=== PATIENT | male | born 1960 ===

== ENCOUNTER 2024-03-23 21:33 | Emergency (ER) | payer MEDICAID ==
[~2024-03-23] VITALS: Ht 165.1 cm; Wt 74.0 kg
[2024-03-23 21:52] VITALS: BP 131/80; PULSE 70; RESP 18; TEMP 97.4
[2024-03-23 22:15] LABS: BASOPHILS % (AUTO) 0.9 % (0.0-2.0); EOSINOPHILS % (AUTO) 2.8 % (1.0-6.0); HEMATOCRIT 40.9 % (41-53); HEMOGLOBIN 13.7 g/dL (13.5-17.5); LYMPHOCYTES # (AUTO) 1.2 K/uL (1.0-4.8); LYMPHOCYTES % (AUTO) 25.4 % (22.0-44.0); MEAN CORPUSCULAR HEMOGLOBIN 32.1 pg (26.0-34.0); MEAN CORPUSCULAR HGB CONC 33.6 G/dL (31.0-37.0); MEAN CORPUSCULAR VOLUME 96 fL (80-100); MONOCYTES # (AUTO) 0.4 K/uL (0.1-1.0); MONOCYTES % (AUTO) 9.3 % (2.0-9.0); NEUTROPHILS # (AUTO) 2.9 K/uL (1.8-7.7); NEUTROPHILS % (AUTO) 61.6 % (40.0-70.0); PLATELET COUNT (AUTO) 190 K/uL (150-450); RED BLOOD CELL COUNT(AUTO) 4.29 MIL/uL (4.50-5.90); RED CELL DISTRIBUTION WIDTH 14.2 % (11.5-14.5); WHITE BLOOD COUNT (AUTO) 4.7 K/uL (4.5-11.0)
[2024-03-23 22:35] LABS: CALCIUM, TOTAL 8.8 mg/dL (8.8-10.5); CREATININE 1.22 mg/dL (0.60-1.30); POTASSIUM 3.6 mmol/L (3.5-5.1)
[2024-03-23 22:43] LABS: TROPONIN I-HIGH SENSITIVITY 20 ng/L (<76)
[2024-03-23] MEDS ORDERED: ONDA-104 PO (23:01)
[2024-03-23] MEDS ORDERED: DIPH-1130 PO (23:01)
[2024-03-23] MEDS: DIPHENOXYLATE/ATROP 2.5-0.025 MG TABLET PO ONE (23:22)
[2024-03-23] MEDS: ONDANSETRON HCL 4 MG TABLET PO ONE (23:23)
== END 2024-03-23 23:28 | disposition home or self-care (01) ==
LOC: EMS 21:33
DX: A08.4 Viral intestinal infection, unspecified (principal); I10 Essential (primary) hypertension; F20.9 Schizophrenia, unspecified
CPT/HCPCS: 99285; 71045; 80048; 83690; 84484; 85025; 36415; 93005; Q0162